=== PATIENT | female | born 2000 | race Caucasian/White ===

== ENCOUNTER 2024-01-18 06:00 | Emergency (ER) | payer OTHER, SELFPAY ==
[2024-01-18 06:09] VITALS: BP 106/80
[2024-01-18 06:55] LABS: % Basophils 0.3 % (0-2); % Eosinophils 0.3 % (0-6); % Immature Granulocytes 0.4 % (0-0.5); % Lymphocytes 9.5 % (20.5-51.1); % Monocytes 7.4 % (1.7-9.3); % Neutrophils 82.1 % (42.2-75.2); Absolute Immature Granulocytes 0.1 10^3/uL (0-0.05); Absolute Lymphocytes 1.1 10^3/uL (1.2-3.4); Absolute Monocytes 0.9 10^3/uL (0.1-0.6); Absolute Neutrophils 9.6 10^3/uL (1.4-6.5); Hematocrit 35.4 % (37.0-47.0); Hemoglobin 12.5 g/dL (12.0-16.0); Mean Corp Hgb Conc. 35.3 g/dL (33.0-37.0); Mean Corpuscular Hgb 29.6 pg (27.0-31.0); Mean Corpuscular Volume 83.9 fL (81.0-99.0); Mean Platelet Volume 10.2 fL (7.4-10.4); Nucleated Red Blood Cells % 0 %; Platelet Count 295 10^3/uL (130-400); Red Blood Cell Count 4.22 10^6/uL (4.20-5.40); Red Cell Dist. Width 12.2 % (11.5-14.5); White Blood Cell Count 11.7 10^3/uL (4.8-10.8)
[2024-01-18 07:05] LABS: HCG, Serum Qualitative Screen Negative
[2024-01-18 07:06] LABS: Lactic Acid 1.1 mmol/L (0.7-2.0)
[2024-01-18 07:10] LABS: ALT (SGPT) 22 U/L (0-35); AST (SGOT) 28 U/L (14-36); Albumin 4.9 g/dl (3.5-5.0); Alkaline Phosphatase 78 U/L (38-126); Blood Urea Nitrogen 11 mg/dl (7-17); Calcium 9.6 mg/dl (8.4-10.2); Carbon Dioxide 21 mmol/L (22-30); Chloride 103 mmol/L (98-107); Glucose 107 mg/dl (70-99); Lipase 47 U/L (23-300); Potassium 4.1 mmol/L (3.5-5.1); Sodium 140 mmol/L (135-145); Total Bilirubin 0.4 mg/dl (0.2-1.3); Total Protein 7.8 g/dl (6.3-8.2); eGFR > 60.00
[2024-01-18 07:11] VITALS: BP 113/69; BMI 25.3
--- NOTE | 2024-01-18 07:20 | ED.GENMED ---
Addendum entered and electronically signed by Nico Li PA-C 01/22/24 08:42:
Stool culture shows Campylobacter species. Attempted to call patient to discuss results however no answer. Left message to call back.
Original Note:
History of Present Illness
General
Chief Complaint: Abdominal Symptoms
Time Seen by Provider: 01/18/24 07:19
History of Present Illness
History of Present Illness:
HPI: Earlier this week, foul smelling flatus onset 4d ago. the patient felt feverish at that time and then more recently had nausea without vomiting and diarrhea with cramping. Has retro-orbital HAs. She was at a wedding on Sunday and
ate/cooked chicken on the last day of its use by date this past Sunday.
EXAM:
GENERAL: Well appearing in no distress
HEENT: Dry oral mucosa
CARDIOVASCULAR: No murmurs, normal heart rate, regular rhythm, No chest wall tenderness
PULMONARY: No respiratory distress, breath sounds are clear and equal
ABDOMEN: Soft with no peritoneal signs, no tenderness, mild abdominal distention
NEUROLOGIC: Excellent strength all extremities, no coordination deficits
PSYCHIATRIC: Appropriate mental status, normal insight and judgement
EXTREMITIES: Nontender, no edema, moves all extremities equally
SKIN: No rash, no lesions
TIME OF INITIAL ENCOUNTER: 8 AM
NUMBER AND COMPLEXITY OF PROBLEMS ADDRESSED AT THE ENCOUNTER
� Chronic conditions affecting care: Has had Salmonella in the past
� Acute Exacerbation and/or Progression of Chronic Illness: This is an acute problem
� Differential Diagnosis includes: Viral syndrome, gastroenteritis, foodborne illness
AMOUNT AND/OR COMPLEXITY OF DATA TO BE REVIEWED AND ANALYZED
� I performed an independent evaluation of and my interpretation is:
EKG:
CT:
X-rays:
Laboratory Studies: White count 11.7, hemoglobin 12.5, chemistries unremarkable however bicarb slightly low at 21, hCG negative
Other:
� Review of other/old records: The patient was seen here with dehydration in 2020
� Clinical information was obtained by an independent historian: Spoke to boyfriend at bedside
� Prescriptions/Medications Considered but not given:
� Further testing considered but not performed: Considered CT however there is only minimal leukocytosis and no significant tenderness on examination and diarrhea is a significant component of her symptoms
RISK OF COMPLICATIONS AND/OR MORBIDITY OR MORTALITY OF PATIENT MANAGEMENT
� Social determinants of health affecting care: Lives at home
� Discussion with other providers:
� Escalation of care including admission/observation vs risk of discharge considered: The patient already felt improved after 1 L of IV fluids. She was also given Toradol and additional fluids. Feels significantly improved
prior to discharge.
Past History
Past History
ED Past Medical History: None
ED Past Surgical History: Appendectomy and Orthopedic
Social History
Tobacco: Non-smoker
Alcohol: None
Drug: None
Personal: Single
Living: with family
Employment: Employed
Family History
Family History: Other (Noncontributory)
Phy Exam
Physical Exam
Physical Exam:
See HPI
Sepsis
Sepsis Screening
Sepsis Assessment: Sepsis Ruled Out
Sepsis Screen
Sepsis Screen: Sepsis Ruled Out
Date: 01/18/24
Time: 10:12
Course
Orders/Labs/Results
Orders:
Orders
01/18/24 06:25
IV Insert/Care/Rem.- Treatment PRN
01/18/24 06:28
Test Result ONCE
01/18/24 06:44
Complete Blood Count/With Diff Urgent
Comprehensive Metabolic Panel Urgent
HCG, Serum Qualitative Screen Urgent
Lactic Acid Urgent
Lipase Urgent
01/18/24 07:16
Urinalysis Reflex To Culture Urgent
Date Specimen was Collected: 01/18/24
Time Specimen was Collected: 07:14
Urine Microscopic Reflex Cult Urgent
Urine Culture Urgent
GABBIE Source: U
Specimen Description:
Date Specimen was Collected: 01/18/24
Time Specimen was Collected: 07:14
01/18/24 07:43
STOOL [C difficile Antigen & Toxins] Urgent
GABBIE Source: Feces/Stool
Specimen Description:
Date Specimen was Collected: 01/18/24
Time Specimen was Collected: 07:41
Stool Culture Urgent
GABBIE Source: Feces/Stool
Specimen Description:
Date Specimen was Collected: 01/18/24
Time Specimen was Collected: 07:41
01/18/24 08:11
0.9% Sodium Chloride 1000 ml [Nss] 1,000 ml IV BOLUS
Ketorolac [Toradol] 15 mg IV NOW STA
01/18/24 08:17
0.9% Sodium Chloride 1000 ml [Nss] 1,000 ml IV BOLUS
Abnormal Lab Results
01/18/24 01/18/24
06:44 07:16
WBC 11.7 H 10^3/uL
(4.8-10.8)
Hct 35.4 L %
(37.0-47.0)
Abs Immat Gran (auto) 0.1 H 10^3/uL
(0-0.05)
Absolute Neuts (auto) 9.6 H 10^3/uL
(1.4-6.5)
Absolute Lymphs (auto) 1.1 L 10^3/uL
(1.2-3.4)
Absolute Monos (auto) 0.9 H 10^3/uL
(0.1-0.6)
Neutrophils % 82.1 H %
(42.2-75.2)
Lymphocytes % 9.5 L %
(20.5-51.1)
Carbon Dioxide 21 L mmol/L
(22-30)
Glucose 107 H mg/dl
(70-99)
Ur Occult Blood Reflex 3+ A
(Negative)
Urine RBC 3-6 A /HPF
(0-2)
Urine Bacteria (Reflex) Many A
(Negative)
01/18/24 06:44
01/18/24 06:44
Vital Signs
Initial and Last Documented VS:
Initial Vital Signs
Temp Pulse Resp BP Pulse Ox
100.3 F 112 20 106/80 99
01/18/24 06:09 01/18/24 06:09 01/18/24 06:09 01/18/24 06:09 01/18/24 06:09
Last Documented Vital Signs
Temp Pulse Resp BP Pulse Ox
100.3 F 87 16 107/62 97
01/18/24 06:09 01/18/24 09:15 01/18/24 09:15 01/18/24 09:07 01/18/24 09:15
*Critical Care Note
Total Time (30-74mins, 75-104mins- exclusive of procedures): Not Applicable
ED Attending Note
-
Portions of this chart may have been created with voice recognition software.� Occasional wrong word or��sound alike� substitutions may have occurred due to the inherent limitations of voice recognition software.
Discharge Plan
Departure
Patient Disposition: Home (Routine Discharge)
Date of Disposition: 01/18/24
Time of Disposition: 09:12
Patient with high blood pressure during this ER visit?: No
Discharge Problem:
Diarrhea
Instructions: Diarrhea in teens and adults, Dehydration, Adult (DC)
Prescriptions:
No Action
No Current Medications
0
Referrals:
Victor Manuel Ma MD [Family Provider] -
Activity Restrictions/Additional Instructions:
The C. difficile test was negative. White count is minimally elevated 11.7, bicarb is slightly low at 21 (suggestive of very mild dehydration). We did give you IV fluids as well as a dose of Toradol. Consider taking Motrin for pain at home.
Further stool studies are pending. There is no definite sign of urinary tract infection. Return here if worse or other can
Interventions
Interventions:
*Risk Screen - Suicide Last Done: 01/18/24 06:01
*General Assessment Last Done: 01/18/24 06:09
*Neglect/Abuse Screening Last Done: 01/18/24 06:09
ED- Fall Risk Assessment Last Done: 01/18/24 06:09
*ED COVID-19 Vaccine History Last Done: 01/18/24 06:09
*Nursing Disposition Last Done: 01/18/24 09:34
CT-Fiseqb-Yarsnsfrhi Assessment Last Done: 01/18/24 06:45
Discharge Date and Time
Discharge Date/Time: 01/18/24 09:39
Print Language: MAORI
[2024-01-18 07:54] LABS: Urine Albumin Trace (Neg - Trace); Urine Bilirubin Negative (Negative); Urine Character Slightly Cloudy (Clear); Urine Color Yellow; Urine Glucose Negative (Negative); Urine Ketone Negative (Negative); Urine Leukocyte Negative (Negative); Urine Nitrite Negative (Negative); Urine Occult Blood 3+ (Negative); Urine Urobilinogen Negative (Neg - 1+)
[2024-01-18 08:00] VITALS: BP 98/56
[2024-01-18 08:12] LABS: Urine Mucus Many; Urine Squamous Cell >30 /LPF (Few)
[2024-01-18 08:13] LABS: Urine Bacteria Many (Negative)
[2024-01-18] MEDS: NSS 1000 IV ×2 (08:18→08:19)
[2024-01-18] MEDS: TORADOL 15 MG IV (08:18)
[2024-01-18 09:07] VITALS: BP 107/62
== END 2024-01-18 09:39 | disposition home or self-care (01) ==
LOC: EMR 06:00
PROVIDERS: EMERGENCY PHYSICIAN Emergency Medicine; FAMILY PHYSICIAN Family Medicine
DX: R19.7 Diarrhea, unspecified (principal)
CPT/HCPCS: 99282; 96374; 96361; 80053; 81003; 81015; 83605; 83690; 84703; 85025; 87045; 87046; 87086; 87324; 87427; 87449